=== PATIENT | male | born 1995 | race Two or more races ===

== ENCOUNTER 2021-01-08 03:41 | Emergency (ER) | payer SELFPAY ==
--- NOTE | 2021-01-08 03:56 | EDM.PDOC ---
<Kory Goldman - Last Filed: 01/08/21 06:40> ED HPI GENERAL MEDICAL PROBLEM - General Chief Complaint: Flank Pain Stated Complaint: ABDOMINAL PAIN Time Seen by Provider: 01/08/21 03:42 Source of Information: Reports: Patient History Limitations: Reports: No Limitations - History of Present Illness INITIAL COMMENTS - FREE TEXT/NARRATIVE: 25-year-old male with no past medical history presents with left flank pain. Pain started 24 hours ago, localized to the left flank and radiates to the left lower quadrant, described as throbbing, sharp, severe, waxes and wanes, rated 10/10. He admits to nausea and vomiting, hematuria, urgency. He denies fever, chills. ROS: A 10-point review of systems, other than pertinent positives and negatives as stated per HPI, is otherwise negative Past medical history: No additional pertinent history Past Surgical history: No additional pertinent history Social history: No additional pertinent history Family history: No additional pertinent history PHYSICAL EXAM General: AOx4, GCS = 15, moderate distress HEENT: dry mucous membrane Neck: supple, no meningismus, no Kernig or Brudzinski Cardiac: S1S2 RRR Respiratory: CTAB, no crackles or rales, no wheezing Abdomen: Soft, RLQ + LLQ ttp, no rebound or guarding, nondistended, no pulsatile mass. Back: nontender Musculoskeletal: NVI distally, no deformity Neuro: No focal deficits L abdomen Pain Score (Numeric/FACES): 10 - Related Data Allergies Allergy/AdvReac Type Severity Reaction Status Date / Time No Known Allergies Allergy Verified 01/08/21 03:53 Home Meds: Home Meds . [No Known Home Meds] 01/08/21 [History] ED ROS GENERAL - Review of Systems Review Of Systems: See Below (see dictation) ED EXAM, GENERAL - Physical Exam Exam: See Below (see dictation) Course - Re-Assessments/Exams Free Text/Narrative Re-Assessment/Exam: 01/08/21 06:10 Patient's left-sided abdominal pain is improved after IV pain medication. 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 01/08/21 06:[address] Danny Preez, will come assess patient for possible appendicitis. 01/08/21 06:59 Case signed out to Dr. Bishop for ultimate disposition. Departure - Departure Disposition: Home, Self-Care 01 Condition: Good Clinical Impression: Flank pain, Ureteral calculus, left - Discharge Information Instructions: Kidney Stones, [id number] Referrals: PCP,None [Primary Care Provider] - Forms: ED Department Discharge Additional Instructions: The following information is given to patients seen in the emergency department who are being discharged to home. This information is to outline your options for follow-up care. We provide all patients seen in our emergency department w ith a follow-up referral. The need for follow-up, as well as the timing and circumstances, are variable depending upon the specifics of your emergency department visit. If you don't have a primary care physician on staff, we will provide you with a referral. We always advise you to contact your personal physician following an emergency department visit to inform them of the circumstance of the visit and for follow-up with them and/or the need for any referrals to a consulting specialist. The emergency department will also refer you to a specialist when appropriate. This referral assures that you have the opportunity for follow-up care with a specialist. All of these measure are taken in an effort to provide you with optimal care, which includes your follow-up. Under all circumstances we always encourage you to contact your private physician who remains a resource for coordinating your care. When calling for follow-up care, please make the office aware that this follow-up is from your recent emergency room visit. If for any reason you are refused follow-up, please contact the [facility] Emergency Department at and asked to speak to the emergency department charge nurse. Please follow up with your primary care physician. If you do not have a primary care physician, see below: [facility] - Urology [address] [place] [id number] Your pain is likely due to your kidney stone. Again we did a CT scan and CT scan did show some dilatation of your appendix. After speaking to the surgeon and have them evaluate you we do not believe this is appendicitis at the moment. We do want you to keep an eye on this if you start having any intense pain in your right lower abdomen with nausea or vomiting or other concerning symptoms please return to the ED as soon as possible. You have any other questions feel free to give us a call back. <Sidney Bishop - Last Filed: 01/08/21 08:04> Course - Vital Signs Last Recorded V/S: Last Vital Signs Temp 98.8 F 01/08/21 03:53 Pulse 84 01/08/21 05:13 Resp 18 01/08/21 05:13 BP 137/70 01/08/21 05:13 Pulse Ox 97 01/08/21 05:13 - Orders/Labs/Meds Orders: Active Orders 24 hr Category Date Time Status CHLAMYDIA AND GONORRHEA BY TMA Stat Lab 01/08/21 05:40 Received CULTURE URINE [RM] Stat Lab 01/08/21 03:52 Received Sodium Chloride 0.9% [Saline Flush] Med 01/08/21 04:13 Active 10 ml FLUSH ASDIRECTED PRN Sodium Chloride 0.9% [Saline Flush] Med 01/08/21 04:13 Active 2.5 ml FLUSH ASDIRECTED PRN Saline Lock Insert [OM.PC] Stat Oth 01/08/21 04:13 Ordered Medication Orders Sodium Chloride (Sodium Chloride 0.9% 10 Ml Syringe) 10 ml FLUSH ASDIRECTED PRN PRN Reason: Keep Vein Open Sodium Chloride (Sodium Chloride 0.9% 2.5 Ml Syringe) 2.5 ml FLUSH ASDIRECTED PRN PRN Reason: Keep Vein Open Labs: Laboratory Tests 01/08/21 01/08/21 01/08/21 Range/Units 03:52 03:57 03:57 WBC 11.68 H (4.0-11.0) K/uL RBC 5.19 (4.50-5.90) M/uL Hgb 15.1 (13.0-17.0) g/dL Hct 45.2 (38.0-50.0) % MCV 87.1 (80.0-98.0) fL MCH 29.1 (27.0-32.0) pg MCHC 33.4 (31.0-37.0) g/dL RDW Std Deviation 42.0 (28.0-62.0) fl RDW Coeff of Diogo 13 (11.0-15.0) % Plt Count 348 (150-400) K/uL MPV 10.30 (7.40-12.00) fL Neut % (Auto) 59.4 (48.0-80.0) % Lymph % (Auto) 28.2 (16.0-40.0) % Limestone % (Auto) 9.6 (0.0-15.0) % Eos % (Auto) 2.5 (0.0-7.0) % Baso % (Auto) 0.3 (0.0-1.5) % Neut # (Auto) 6.9 H (1.4-5.7) K/uL Lymph # (Auto) 3.3 H (0.6-2.4) K/uL Limestone # (Auto) 1.1 H (0.0-0.8) K/uL Eos # (Auto) 0.3 (0.0-0.7) K/uL Baso # (Auto) 0.0 (0.0-0.1) K/uL Nucleated RBC % 0.0 /100WBC Nucleated RBCs # 0 K/uL Lactate 1.2 (0.20-2.00) mmol/L Sodium (136-148) mmol/L Potassium (3.5-5.1) mmol/L Chloride (98-107) mmol/L Carbon Dioxide (21.0-32.0) mmol/L BUN (7.0-18.0) mg/dL Creatinine (0.8-1.3) mg/dL Est Cr Clr Drug Dosing mL/min Estimated GFR (MDRD) ml/min Glucose (74-106) mg/dL Calcium (8.5-10.1) mg/dL Magnesium (1.8-2.4) mg/dL Total Bilirubin (0.2-1.0) mg/dL AST (15-37) IU/L ALT (14-63) IU/L Alkaline Phosphatase (46-116) U/L Total Protein (6.4-8.2) g/dL Albumin (3.4-5.0) g/dL Globulin (2.6-4.0) g/dL Albumin/Globulin Ratio (0.9-1.6) Lipase (73-393) U/L Urine Color YELLOW Urine Appearance SLT CLOUDY Urine pH 5.0 (5.0-8.0) Ur Specific Duncan >= 1.030 (1.001-1.035) Urine Protein TRACE H (NEGATIVE) mg/dL Urine Glucose (UA) NEGATIVE (NEGATIVE) mg/dL Urine Ketones NEGATIVE (NEGATIVE) mg/dL Urine Occult Blood LARGE H (NEGATIVE) Urine Nitrite NEGATIVE (NEGATIVE) Urine Bilirubin NEGATIVE (NEGATIVE) Urine Urobilinogen 0.2 (<2.0) EU/dL Ur Leukocyte Esterase TRACE H (NEGATIVE) Urine RBC 95-100 (0-2/HPF) Urine WBC 25-30 (0-5/HPF) Ur Epithelial Cells FEW (NONE-FEW) Urine Bacteria FEW (NEGATIVE) Urine Mucus MODERATE (NONE-MOD) SARS-CoV-2 RNA (KARLA) (NEGATIVE) 01/08/21 01/08/21 Range/Units 03:57 06:10 WBC (4.0-11.0) K/uL RBC (4.50-5.90) M/uL Hgb (13.0-17.0) g/dL Hct (38.0-50.0) % MCV (80.0-98.0) fL MCH (27.0-32.0) pg MCHC (31.0-37.0) g/dL RDW Std Deviation (28.0-62.0) fl RDW Coeff of Diogo (11.0-15.0) % Plt Count (150-400) K/uL MPV (7.40-12.00) fL Neut % (Auto) (48.0-80.0) % Lymph % (Auto) (16.0-40.0) % Limestone % (Auto) (0.0-15.0) % Eos % (Auto) (0.0-7.0) % Baso % (Auto) (0.0-1.5) % Neut # (Auto) (1.4-5.7) K/uL Lymph # (Auto) (0.6-2.4) K/uL Limestone # (Auto) (0.0-0.8) K/uL Eos # (Auto) (0.0-0.7) K/uL Baso # (Auto) (0.0-0.1) K/uL Nucleated RBC % /100WBC Nucleated RBCs # K/uL Lactate (0.20-2.00) mmol/L Sodium 141 (136-148) mmol/L Potassium 4.1 (3.5-5.1) mmol/L Chloride 105 (98-107) mmol/L Carbon Dioxide 25.8 (21.0-32.0) mmol/L BUN 14 (7.0-18.0) mg/dL Creatinine 1.4 H (0.8-1.3) mg/dL Est Cr Clr Drug Dosing 82.06 mL/min Estimated GFR (MDRD) > 60.0 ml/min Glucose 124 H (74-106) mg/dL Calcium 8.9 (8.5-10.1) mg/dL Magnesium 2.1 (1.8-2.4) mg/dL Total Bilirubin 0.4 (0.2-1.0) mg/dL AST 21 (15-37) IU/L ALT 53 (14-63) IU/L Alkaline Phosphatase 98 (46-116) U/L Total Protein 8.1 (6.4-8.2) g/dL Albumin 4.2 (3.4-5.0) g/dL Globulin 3.9 (2.6-4.0) g/dL Albumin/Globulin Ratio 1.1 (0.9-1.6) Lipase 89 (73-393) U/L Urine Color Urine Appearance Urine pH (5.0-8.0) Ur Specific Duncan (1.001-1.035) Urine Protein (NEGATIVE) mg/dL Urine Glucose (UA) (NEGATIVE) mg/dL Urine Ketones (NEGATIVE) mg/dL Urine Occult Blood (NEGATIVE) Urine Nitrite (NEGATIVE) Urine Bilirubin (NEGATIVE) Urine Urobilinogen (<2.0) EU/dL Ur Leukocyte Esterase (NEGATIVE) Urine RBC (0-2/HPF) Urine WBC (0-5/HPF) Ur Epithelial Cells (NONE-FEW) Urine Bacteria (NEGATIVE) Urine Mucus (NONE-MOD) SARS-CoV-2 RNA (KARLA) NEGATIVE (NEGATIVE) Meds: Medications Generic Name Dose Route Start Last Admin Trade Name Freq PRN Reason Stop Dose Admin Sodium Chloride 10 ml 01/08/21 04:13 Sodium Chloride 0.9% 10 Ml Syringe FLUSH ASDIRECTED PRN Keep Vein Open Sodium Chloride 2.5 ml 01/08/21 04:13 Sodium Chloride 0.9% 2.5 Ml Syringe FLUSH ASDIRECTED PRN Keep Vein Open Discontinued Medications Generic Name Dose Route Start Last Admin Trade Name Neto PRN Reason Stop Dose Admin Hydromorphone HCl 1 mg 01/08/21 04:13 01/08/21 04:20 Hydromorphone 1 Mg/Ml Syringe IVPUSH 01/08/21 04:14 1 mg ONETIME ONE Administration Lactated Ringer's 1,000 mls @ 999 mls/hr 01/08/21 04:13 01/08/21 04:19 Ringers, Lactated IV 01/08/21 05:13 999 mls/hr .BOLUS ONE Administration Ceftriaxone Sodium/Dextrose 1 50 mls @ 100 mls/hr 01/08/21 04:59 01/08/21 05:05 gm/ Premix IV 01/08/21 05:28 100 mls/hr ONETIME ONE Administration Piperacillin Sod/Tazobactam 100 mls @ 100 mls/hr 01/08/21 06:14 01/08/21 06:27 Sod 4.5 gm/ Sodium Chloride IV 01/08/21 07:13 100 mls/hr ONETIME ONE Administration Ondansetron HCl 4 mg 01/08/21 04:13 01/08/21 04:19 Ondansetron 4 Mg/2 Ml Sdv IVPUSH 01/08/21 04:14 4 mg ONETIME ONE Administration - Re-Assessments/Exams Free Text/Narrative Re-Assessment/Exam: 01/08/21 08:01 Patient was signed out to me from previous physician. Patient was found to have a kidney stone but also the CT scan showed a possible appendiceal dilatation. At the patient was evaluated by surgery patient has no right lower quadrant pain. On exam for me as well patient has no right lower quadrant pain. Patient feels like he has no nausea vomiting is able to tolerate p.o. looks fine. Patient is a small white count 11.6. At the speaking surgeon also discussed with the patient the bedside. Patient will like to be discharged home and have strict return precautions. We do not feel this is appendicitis today. Patient stone was 4 mm and will likely pass on his own. Patient will be sent home with antibiotics and a strainer. Departure - Departure Time of Disposition: 08:02 Condition: Good - Discharge Information *PRESCRIPTION DRUG MONITORING PROGRAM REVIEWED*: Not Applicable *COPY OF PRESCRIPTION DRUG MONITORING REPORT IN PATIENT [place]: Not Applicable Sepsis Event Note (ED) - Focused Exam Vital Signs: Vital Signs Temp Pulse Resp BP Pulse Ox 01/08/21 05:13 84 18 137/70 97 01/08/21 04:19 97 18 141/73 H 98 01/08/21 03:53 98.8 F 98 18 177/104 H 95
[2021-01-08] MEDS ORDERED: Sodium Chloride 0.9% 10 ML Syringe FLUSH PRN (04:13)
[2021-01-08] MEDS ORDERED: Sodium Chloride 0.9% 2.5 ML Syringe FLUSH PRN (04:13)
[2021-01-08] MEDS ORDERED: HYDROmorphone 1 MG/ML Syringe IVPUSH ONE (04:13)
[2021-01-08] MEDS ORDERED: Lactated Ringers 1,000 ML IV ONE (04:13)
[2021-01-08] MEDS ORDERED: Ondansetron 4 MG/2 ML SDV IVPUSH ONE (04:13)
[2021-01-08 04:28] LABS: BLOOD UREA NITROGEN,BUN 14 mg/dL (7.0-18.0); CARBON DIOXIDE,CO2 25.8 mmol/L (21.0-32.0); CHLORIDE,CL 105 mmol/L (98-107); GLUCOSE RANDOM 124 mg/dL (74-106); LIPASE 89 U/L (73-393); POTASSIUM,K 4.1 mmol/L (3.5-5.1); SODIUM,NA 141 mmol/L (136-148)
[2021-01-08] MEDS ORDERED: cefTRIAXone 1 GM in Premix Bag 1 BAG IV ONE (04:59)
--- NOTE | 2021-01-08 05:44 | CT ---
INDICATION: Left flank pain TECHNIQUE: Axial images were obtained from the diaphragm to the pubic symphysis. Reformats were obtained in the coronal and sagittal plane. IV Contrast: None Oral Contrast: None COMPARISON: None. FINDINGS: Lower chest: Unremarkable. Liver: Diffusely decreased density to the liver consistent with fatty infiltration. Gallbladder and bile ducts: Unremarkable. No stones or inflammation. No biliary dilatation. Spleen: Unremarkable. Normal in size without mass. Pancreas: Unremarkable. No mass or inflammation. Adrenal glands: Unremarkable. No nodules. Kidneys: Nephrolithiasis with mild left hydronephrosis and an obstructing proximal ureteral stone measuring 4 millimeters. Vasculature: Unremarkable. GI tract: No dilated loops of large or small intestine mild dilation of the appendiceal tip at 9 millimeters without periappendiceal inflammation. Pelvis: Unremarkable. Bones: Unremarkable for age. IMPRESSION: 1. Nephrolithiasis with mild left hydronephrosis and obstructing proximal left ureteral stone measuring 4 millimeters. 2. Hepatic steatosis. 3. Mild dilatation of the appendiceal tip at 9 millimeters. No adjacent inflammation is identified and this may be incidental although correlation for right lower quadrant pain suggested. Please note that all CT scans at this facility use dose modulation, iterative reconstruction, and/or weight-based dosing when appropriate to reduce radiation dose to as low as reasonably achievable. Dictated by Sunil Silva MD @ Jan 08 2021 5:38AM Signed by Dr. Sunil Silva @ Jan 08 2021 5:42AM
[2021-01-08] MEDS ORDERED: Piperacillin/Tazobactam 4.5 GM in Sodium Chloride 0.9% 100 ML IV ONE (06:14)
--- NOTE | 2021-01-08 10:03 | CONS ---
DATE OF CONSULTATION: 01/08/2021 DATE OF : 1995 PRIMARY CARE PHYSICIAN: None PCP HISTORY OF PRESENT ILLNESS: The patient is a pleasant 25-year-old gentleman who said this Shaun, approximately at 4 a.m., he had sudden onset of sharp left flank pain. He says it was like someone shoved a knife on to his left side. Severe pain. He said the pain did radiate a little bit up to his left upper abdomen. This pain persisted. He said he did not notice gross hematuria in his urine the next 3 times he urinated. We tried some cranberry juice and that seemed to work a little bit sometimes, what his grandmother said to use. He said the pain just persisted, so he came into the ER. The patient did have some nausea and vomiting. He has also had a little bit of loose stools. The patient said he has also had issue with urination in the last couple of weeks. He said for last 2 weeks he has had issues with urinary incontinence. He does not feel the urge to urinate. If he does not make it right away, he will wet himself. He also has white count up at night and he has urinated himself, which is new. The patient denies any right-sided pain at all. The patient did have a CT scan, which showed nephrolithiasis with left hydronephrosis and an obstructing proximal left ureteral stone measuring 4 mm, hepatic steatosis. The patient also had some mild dilation of the appendix tip at about 9 mm, but with no inflammation or signs of infection around the appendix. PAST MEDICAL HISTORY: The patient denies any. CURRENT HOME MEDICATIONS: The patient denies any. SOCIAL HISTORY: 1. The patient smokes a 4th pack of cigarettes per day. 2. Denies illicit drug use. 3. Occasionally drinks alcohol socially with his friends. Used about once a month when he was playing pool. FAMILY HISTORY: Grandmother had heart disease. REVIEW OF SYSTEMS: Complete 12+ review of systems was done, was negative except for what was in HPI. PULMONARY: The patient says at night sometimes he feels a little bit shortness of breath. Sometimes, wakes up short of breath, feels because of the smoking. : Again, the patient has had some urinary incontinence and urgency over the last 2 weeks. Also, apparently had blood in urine 3 times yesterday. Says that now it has cleared up. PHYSICAL EXAMINATION: GENERAL: The patient is lying comfortably in hospital ER bed. He is alert and oriented, in no acute distress. VITAL SIGNS: Temperature is 98.8, pulse is 84, blood pressure is 137/70, he is satting 97% on room air. HEENT: Head is normocephalic, atraumatic. LUNGS: Clear to auscultation bilaterally. No rhonchi or wheezing heard. HEART: Regular rhythm. No murmur appreciated. ABDOMEN: Soft and nondistended. The patient does have pain more in the mid left flank to palpation, to left vertebrocostal angle to palpation. No right- sided pain. No rebound, no guarding. EXTREMITIES: No edema. NEUROLOGICAL: Grossly, no motor or neurologic deficit noted. IMAGING: As per HPI. Did look at the report and reviewed images myself. LABORATORY DATA: White cell count is 11.68, hemoglobin is 15.1, platelet count is 42, lactic acid is 1.2. Sodium 141, potassium 4.1, chloride 105, bicarb is 25.8, BUN is 14, creatinine 1.4, glucose is 124, calcium is 8.9, total bilirubin 0.4, AST is 21, ALT is 53, alk phos is 98. Urinalysis: Some trace protein. Does have large occult blood, some trace leukocytes. COVID is negative. ASSESSMENT AND PLAN: This is a pleasant 25-year-old male, who had sudden onset of a knife-like sensation in his left flank accompanying with gross hematuria. He had a CT scan that shows obstructing stone in his left ureter, accompanying with some urinary incontinence. He was consulted for possible appendicitis because of potentially mildly dilated tip of appendix. Did go over with the patient that this is not likely appendicitis. There is no inflammation seen on CT scan, which is because of pain going on for over 24 hours some changing. Also, he has had no right-sided pain at all left. His pain is most likely due to his kidney stone. Did go over with the patient that some of this could be potentially early appendicitis. I did go over with the patient what appendix was. Went over laparoscopic appendectomy. Did discuss with the patient and we discussed we will hold on any surgery because of the low likelihood of actual appendicitis. He will come back if he has any right lower pain or his pain changes and has any fevers or chills. For his kidney stone, management is per ER and Urology. The patient may follow up in the clinic. ZION NGUYEN /[id number]
[2021-01-10 13:07] LABS: C.TRACHOMATIS BY TMA Positive (Negative); N.GONORRHOEAE BY TMA Negative (Negative)
== END 2021-01-08 08:14 | disposition home or self-care (01) ==
LOC: MW.ED 03:41
DX: N13.2 Hydronephrosis with renal and ureteral calculous obstruction (principal)
CPT/HCPCS: 36415; 74176; 80053; 81001; 83605; 83690; 83735; 85025; 87086; 87491; 87591; 87635; 96365; 96367; 96375; 99284; J0696; J1170; J2405; J2543; J7120; 99283; U0002

== ENCOUNTER 2021-03-07 06:27 | Day surgery (SDC) | payer BC ==
[~2021-03-07 06:27] MED LIST: Sodium Chloride 0.9% 10 ML SDV IV PRN; Sodium Chloride 0.9% 10 ML Syringe FLUSH PRN; Sodium Chloride 0.9% 2.5 ML Syringe FLUSH PRN; ceFAZolin 2 GM in Premix Bag 1 BAG IV ONE
[2021-03-07] MEDS: Lactated Ringers 1,000 ML IV SCH ×2 (07:00→10:37)
[2021-03-07] MEDS ORDERED: fentaNYL 250 MCG/5 ML SDV ONE (07:04)
[2021-03-07] MEDS ORDERED: Midazolam 1 MG/ML 2 ML SDV ONE (07:04)
[2021-03-07] MEDS ORDERED: Propofol 200 MG/20 ML SDV ONE (07:04)
[2021-03-07] MEDS ORDERED: Dexamethasone 4 MG/ML 5 ML MDV ONE (07:13)
[2021-03-07] MEDS ORDERED: Ondansetron 4 MG/2 ML SDV ONE (07:13)
[2021-03-07] MEDS ORDERED: Rocuronium Bromide 50 MG/5 ML Syringe ONE ×2 (07:13→08:25)
[2021-03-07] MEDS ORDERED: Succinylcholine/Sod PF 100 MG/5 ML SYRINGE IV ONE ×2 (07:13→07:15)
[2021-03-07] MEDS ORDERED: fentaNYL 100 MCG/2 ML SDV IVPUSH PRN (07:37)
[2021-03-07] MEDS ORDERED: Iopamidol 408 MG/ML 20 ML SDV ONE (07:39)
--- NOTE | 2021-03-07 07:48 | PCM.PREANE ---
Preanesthetic Assessment - Anesthesia/Transfusion/Family Hx Anesthesia History: Prior Anesthesia Without Reaction Family History of Anesthesia Reaction: No Transfusion History: No Prior Transfusion(s) - Review of Systems General: No Symptoms Pulmonary: No Symptoms, Other Cardiovascular: No Symptoms Gastrointestinal: No Symptoms Neurological: No Symptoms Other: Reports: None - Physical Assessment NPO Status Date: 03/06/21 NPO Status Time: 19:00 Vital Signs: Last Vital Signs Temp 97.7 F 03/07/21 06:22 Pulse 89 03/07/21 06:22 Resp 15 03/07/21 06:22 BP 166/100 H 03/07/21 06:22 Pulse Ox 98 03/07/21 06:22 Height: 5 ft 9 in Weight: 323 lb ASA Class: 2 Mental Status: Alert & Oriented x3 Dentition: Reports: Normal Dentition Thyro-Mental Finger Breadths: 6 Mouth Opening Finger Breadths: 4 ROM/Head Extension: Full Lungs: Clear to Auscultation, Normal Respiratory Effort Cardiovascular: Regular Rate, Regular Rhythm - Allergies Allergies/Adverse Reactions: Allergies Allergy/AdvReac Type Severity Reaction Status Date / Time No Known Allergies Allergy Verified 03/02/21 09:48 - Blood Blood Available: No - Anesthesia Plan Free Text/Narrative:: Patient smokes 3 cigarettes per day - Acknowledgements Anesthesia Type Planned: General Anesthesia Pt an Appropriate Candidate for the Planned Anesthesia: Yes Alternatives and Risks of Anesthesia Discussed w Pt/Guardian: Yes Pt/Guardian Understands and Agrees with Anesthesia Plan: Yes PreAnesthesia Questionnaire - Past Health History Medical/Surgical History: Denies Medical/Surgical History Endocrine/Metabolic History: Reports: Obesity/BMI 30+ - Past Surgical History Head Surgeries/Procedures: Reports: None - SUBSTANCE USE Tobacco Use Status *Q: Light Tobacco User Tobacco Use Within Last Twelve Months: Cigarettes - HOME MEDS Home Medications: Home Meds Hydrocodone/Acetaminophen [Hydrocodone-Acetamin 5-325 mg] 1 tab PO ASDIRECTED PRN 03/02/21 [History] - CURRENT (IN HOUSE) MEDS Current Meds: Current Medications Fentanyl (Fentanyl 100 Mcg/2 Ml Sdv) 50 mcg IVPUSH Q5M PRN PRN Reason: Pain (severe 7-10) Stop: 03/07/21 13:00 Lactated Ringer's (Ringers, Lactated) 1,000 mls @ 100 mls/hr IV ASDIRECTED GATO Last Admin: 03/07/21 07:00 Dose: 100 mls/hr Documented by: Sodium Chloride (Sodium Chloride 0.9% 10 Ml Syringe) 10 ml FLUSH ASDIRECTED PRN PRN Reason: Keep Vein Open Sodium Chloride (Sodium Chloride 0.9% 2.5 Ml Syringe) 2.5 ml FLUSH ASDIRECTED PRN PRN Reason: Keep Vein Open Sodium Chloride (Sodium Chloride 0.9% 10 Ml Sdv) 10 ml IV ASDIRECTED PRN PRN Reason: IV Use Discontinued Medications Dexamethasone (Dexamethasone 4 Mg/Ml 5 Ml Mdv) Confirm Administered Dose 20 mg .ROUTE .STK-MED ONE Stop: 03/07/21 07:14 Fentanyl (Fentanyl 250 Mcg/5 Ml Sdv) Confirm Administered Dose 250 mcg .ROUTE .STK-MED ONE Stop: 03/07/21 07:05 Cefazolin Sodium/Dextrose 2 gm (/ Premix) 50 mls @ 100 mls/hr IV ONCALL ONE Stop: 03/07/21 06:29 Cefazolin Sodium/Dextrose (Ancef 2 Gm/50 Ml) Confirm Administered Dose 50 mls @ as directed .ROUTE .STK-MED ONE Stop: 03/07/21 07:32 Iopamidol (Iopamidol 408 Mg/Ml 20 Ml Sdv) Confirm Administered Dose 20 ml .ROUTE .STK-MED ONE Stop: 03/07/21 07:40 Lidocaine HCl (Lidocaine 1% 5 Ml Sdv) Confirm Administered Dose 5 ml .ROUTE .STK-MED ONE Stop: 03/07/21 07:13 Midazolam HCl (Midazolam 1 Mg/Ml 2 Ml Sdv) Confirm Administered Dose 2 mg .ROUTE .STK-MED ONE Stop: 03/07/21 07:05 Ondansetron HCl (Ondansetron 4 Mg/2 Ml Sdv) Confirm Administered Dose 4 mg .ROUTE .STK-MED ONE Stop: 03/07/21 07:14 Propofol (Propofol 200 Mg/20 Ml Sdv) Confirm Administered Dose 200 mg .ROUTE .STK-MED ONE Stop: 03/07/21 07:05 Rocuronium Hana (Rocuronium Hana 50 Mg/5 Ml Syringe) Confirm Administered Dose 50 mg .ROUTE .STK-MED ONE Stop: 03/07/21 07:14
[2021-03-07] MEDS ORDERED: Sugammadex Sodium 200 MG/2 ML VIAL ONE (08:28)
[2021-03-07] MEDS ORDERED: Sodium Chloride 0.9% 20 ML ONE (08:28)
[2021-03-07] MEDS ORDERED: HYDROmorphone 2 MG/ML Syringe ONE (08:28)
[2021-03-07] MEDS ORDERED: Acetaminophen/HYDROcodone 325-5 MG Tab PO PRN (09:09)
--- NOTE | 2021-03-07 09:38 | PCM.POSTAN ---
POST ANESTHESIA ASSESSMENT - MENTAL STATUS Mental Status: Alert, Oriented - VITAL SIGNS Vital Signs: Last Vital Signs Temp 97.2 F 03/07/21 09:12 Pulse 96 03/07/21 09:28 Resp 18 03/07/21 09:28 BP 182/104 H 03/07/21 09:28 Pulse Ox 94 L 03/07/21 09:28 - RESPIRATORY Respiratory Status: Respiratory Rate WNL, Airway Patent, O2 Saturation Stable - CARDIOVASCULAR CV Status: Pulse Rate WNL, Blood Pressure Stable - GASTROINTESTINAL GI Status: No Symptoms - POST OP HYDRATION Hydration Status: Adequate & Stable
--- NOTE | 2021-03-07 09:39 | PCM48HPAN ---
Post Anesthesia Note - EVALUATION WITHIN 48HRS OF ANESTHETIC Vital Signs in Normal Range: Yes Patient Participated in Evaluation: Yes Respiratory Function Stable: Yes Airway Patent: Yes Cardiovascular Function Stable: Yes Hydration Status Stable: Yes Pain Control Satisfactory: Yes Nausea and Vomiting Control Satisfactory: Yes Mental Status Recovered: Yes Vital Signs: Last Vital Signs Temp 97.2 F 03/07/21 09:12 Pulse 96 03/07/21 09:28 Resp 18 03/07/21 09:28 BP 182/104 H 03/07/21 09:28 Pulse Ox 94 L 03/07/21 09:28
[2021-03-07] MEDS ORDERED: Belladonna Alkaloids/Opium 16.2-30 MG Supp RECTAL ONE (09:55)
--- NOTE | 2021-03-07 14:00 | OR ---
SURGEON: Son Mckay M.D. DATE OF PROCEDURE: 03/07/2021 PREOPERATIVE DIAGNOSIS: Left upper ureteral stone. POSTOPERATIVE DIAGNOSIS: Left upper ureteral stone. OPERATION: Left ureteroscopy with stone removal. DESCRIPTION: The patient was placed in dorsal lithotomy position, prepped and draped in sterile drapes. Cystourethroscopy was done, that was normal. A Glidewire was advanced in the left ureter and also a guidewire. Attempt at putting the flexible ureteroscope over one of the wires did not work, so I had to dilate the left lower ureter using the UroMax II balloon dilator to approximately 15- Bengali. Following that, it was easy to put the ureteroscope up all the way to the UPJ where the stone by now was sitting. A Zero Tip basket was used to grasp the stone and remove it without difficulty and without trauma to the ureter. With that done, the procedure was terminated. The guidewires were removed, and the patient was moved to recovery room in good condition. CURT / PATRICK /[id number]
--- NOTE | 2021-03-07 15:39 | CR ---
INDICATION: Left ureteroscopy. TECHNIQUE: One image showing a guidewire and a ureteral catheter. 24.2 seconds fluoroscopy. Please refer to the operative report. Dictated by Abdirahman Martinez MD @ 03/07/2021 2:37:41 PM (Electronically Signed)
== END 2021-03-07 11:16 | disposition home or self-care (01) ==
LOC: MW.SDS 06:27
PROVIDERS: ATTEND Urology
DX: N20.1 Calculus of ureter (principal); F17.210 Nicotine dependence, cigarettes, uncomplicated; E66.9 Obesity, unspecified; Z79.899 Other long term (current) drug therapy; Z68.42 Body mass index [BMI] 45.0-49.9, adult
CPT/HCPCS: 52352; 76000; 88300; A9270; C1769; J0330; J0690; J1100; J1170; J2250; J2405; J2704; J3010; J3490; J7120; Q9966; 00918

== ENCOUNTER 2021-06-10 01:47 | Emergency (ER) | payer BC ==
[2021-06-10] MEDS ORDERED: Ketorolac 30 MG/ML SDV IM ONE (02:07)
[2021-06-10] MEDS ORDERED: Ciprofloxacin 500 MG Tab PO ONE (02:12)
--- NOTE | 2021-06-10 02:14 | EDM.PDOC ---
ED HPI GENERAL MEDICAL PROBLEM - General Chief Complaint: ENT Problem Stated Complaint: EAR INFECTION Time Seen by Provider: 06/10/21 02:08 Source of Information: Reports: Patient History Limitations: Reports: No Limitations - History of Present Illness INITIAL COMMENTS - FREE TEXT/NARRATIVE: Patient is a 25-year-old male presents today for right ear pain. Patient states that he has some pain to the right ear went to walk-in clinic and was given eardrops. He states been taken off since Saturday did not make the symptoms better. States he still has pain and swelling there. Patient denies any change in hearing no fever chills nausea vomiting. right ear Pain Score (Numeric/FACES): 10 - Related Data Allergies Allergy/AdvReac Type Severity Reaction Status Date / Time No Known Allergies Allergy Verified 06/10/21 02:13 Home Meds: Home Meds Hydrocodone/Acetaminophen [Hydrocodone-Acetamin 5-325 mg] 1 tab PO ASDIRECTED PRN 03/02/21 [History] Ciprofloxacin HCl [Cipro] 500 mg PO BID 7 Days #14 tablet 06/10/21 [Rx] Past Medical History - Past Health History Medical/Surgical History: Denies Medical/Surgical History Endocrine/Metabolic History: Reports: Obesity/BMI 30+ - Past Surgical History Head Surgeries/Procedures: Reports: None Social & Family History - Family History Family Medical History: No Pertinent Family History - Caffeine Use Caffeine Use: Reports: Energy Drinks ED ROS ENT - Review of Systems Review Of Systems: See Below Constitutional: Reports: No Symptoms HEENT: Reports: Ear Pain Respiratory: Reports: No Symptoms Endocrine: Reports: No Symptoms GI/Abdominal: Reports: No Symptoms : Reports: No Symptoms Musculoskeletal: Reports: No Symptoms Skin: Reports: No Symptoms Neurological: Reports: No Symptoms Psychiatric: Reports: No Symptoms Hematologic/Lymphatic: Reports: No Symptoms Immunologic: Reports: No Symptoms ED EXAM, ENT - Physical Exam Exam: See Below Exam Limited By: No Limitations General Appearance: Alert, WD/WN, No Apparent Distress Eye Exam: Bilateral Eye: EOMI, PERRL Ears: Canal Discharge, Canal Swelling. No: Normal TMs Mouth/Throat: Normal Inspection Head: Atraumatic, Normocephalic Respiratory/Chest: No Respiratory Distress Cardiovascular: Normal Peripheral Pulses GI/Abdominal: Normal Bowel Sounds Neurological: Alert, Oriented Course - Vital Signs Last Recorded V/S: Last Vital Signs Temp 97.6 F 06/10/21 02:05 Pulse 92 06/10/21 02:05 Resp 18 06/10/21 02:05 BP 155/89 H 06/10/21 02:05 Pulse Ox 97 06/10/21 02:05 - Orders/Labs/Meds Orders: Active Orders 24 hr Category Date Time Status Ciprofloxacin/Dexamethasone [Ciprodex Otic Susp] Med 06/10/21 02:15 Active 1 ml EARRT BID Medication Orders Ciprofloxacin/Dexamethasone (Ciprofloxacin/Dexamethasone 0.3-0.1% Otic Susp 7.5 Ml Bottle) 1 ml EARRT BID GATO Meds: Medications Generic Name Dose Route Start Last Admin Trade Name Freq PRN Reason Stop Dose Admin Ciprofloxacin/Dexamethasone 1 ml 06/10/21 02:15 Ciprofloxacin/Dexamethasone 0.3-0.1% Otic Susp 7.5 Ml Bottle EARRT BID GATO Discontinued Medications Generic Name Dose Route Start Last Admin Trade Name Freq PRN Reason Stop Dose Admin Ciprofloxacin 500 mg 06/10/21 02:12 06/10/21 02:21 Ciprofloxacin 500 Mg Tab PO 06/10/21 02:13 500 mg ONETIME ONE Administration Ketorolac Tromethamine 30 mg 06/10/21 02:07 06/10/21 02:19 Ketorolac 30 Mg/Ml Sdv IM 06/10/21 02:08 30 mg ONETIME ONE Administration Departure - Departure Time of Disposition: 02:14 Disposition: Home, Self-Care 01 Condition: Good Clinical Impression: Otitis externa - Discharge Information *PRESCRIPTION DRUG MONITORING PROGRAM REVIEWED*: Not Applicable *COPY OF PRESCRIPTION DRUG MONITORING REPORT IN PATIENT [place]: Not Applicable Prescriptions: Ciprofloxacin HCl [Cipro] 500 mg PO BID 7 Days #14 tablet Instructions: Otitis Externa, [id number] Referrals: PCP,None [Primary Care Provider] - Forms: ED Department Discharge Additional Instructions: The following information is given to patients seen in the emergency department who are being discharged to home. This information is to outline your options for follow-up care. We provide all patients seen in our emergency department with a follow-up referral. The need for follow-up, as well as the timing and circumstances, are variable depending upon the specifics of your emergency department visit. If you don't have a primary care physician on staff, we will provide you with a referral. We always advise you to contact your personal physician following an emergency department visit to inform them of the circumstance of the visit and for follow-up with them and/or the need for any referrals to a consulting specialist. The emergency department will also refer you to a specialist when appropriate. This referral assures that you have the opportunity for follow-up care with a specialist. All of these measure are taken in an effort to provide you with optimal care, which includes your follow-up. Under all circumstances we always encourage you to contact your private physician who remains a resource for coordinating your care. When calling for follow-up care, please make the office aware that this follow-up is from your recent emergency room visit. If for any reason you are refused follow-up, please contact the Emergency Department at and asked to speak to the emergency department charge nurse. Please follow up with your primary care physician. If you do not have a primary care physician, see below: [facility] [address] [place] [id number] [facility] [address] [place] [id number] Emery Bonner MD [facility], [address] [place] [address] [address] [place] [address] P: [phone] F: [phone] You are seen today for increasing right ear pain. You look to have an otitis externa we have switch her antibiotics to a different eardrop and also place you on some oral antibiotics. Please continue to follow-up with primary care physician also above is a number for the ENT physician and [place] can call to follow-up with if your symptoms continue to worsen. New eardrops Ciprodex 4 drops in the right ear every 12 hours for the next 7 days Sepsis Event Note (ED) - Focused Exam Vital Signs: Vital Signs Temp Pulse Resp BP Pulse Ox 06/10/21 02:05 97.6 F 92 18 155/89 H 97 - My Orders Last 24 Hours: My Active Orders 06/10/21 02:15 Ciprofloxacin/Dexamethasone [Ciprodex Otic Susp] 1 ml EARRT BID - Assessment/Plan Last 24 Hours: My Active Orders 06/10/21 02:15 Ciprofloxacin/Dexamethasone [Ciprodex Otic Susp] 1 ml EARRT BID Plan: Patient is a 25-year-old male presents today for increasing right ear pain. Patient was given eardrops but is not improving the pain will switch eardrops to Ciprodex patient airway can also put patient on oral antibiotics as well.
[2021-06-10] MEDS ORDERED: Ciprofloxacin/Dexamethasone 0.3-0.1% Otic Susp 7.5 ML Bottle EARRT SCH (02:15)
== END 2021-06-10 02:43 | disposition home or self-care (01) ==
LOC: MW.ED 01:47
DX: H60.91 Unspecified otitis externa, right ear (principal); E66.9 Obesity, unspecified; Z68.42 Body mass index [BMI] 45.0-49.9, adult
CPT/HCPCS: 96372; 99282; A9270; J1885

== ENCOUNTER 2021-06-10 03:22 | Emergency (ER) | payer BC ==
[2021-06-10] MEDS ORDERED: diphenhydrAMINE 50 MG/ML SDV ONE (03:27)
[2021-06-10] MEDS ORDERED: EPINEPHrine 1 MG/ML SDV ONE (03:27)
[2021-06-10] MEDS ORDERED: methylPREDNISolone Sodium Succinate 125 MG/2 ML SDV ONE (03:27)
[2021-06-10] MEDS ORDERED: methylPREDNISolone Sodium Succinate 125 MG/2 ML SDV IVPUSH ONE (03:35)
[2021-06-10] MEDS ORDERED: diphenhydrAMINE 50 MG/ML SDV IVPUSH ONE (03:36)
--- NOTE | 2021-06-10 03:36 | EDM.PDOC ---
ED HPI GENERAL MEDICAL PROBLEM - General Chief Complaint: General Stated Complaint: ALLERGIC REACTION TO MEDS Time Seen by Provider: 06/10/21 03:32 Source of Information: Reports: Patient History Limitations: Reports: No Limitations - History of Present Illness INITIAL COMMENTS - FREE TEXT/NARRATIVE: Patient is a 25-year-old male presents today for allergic reaction. Patient was seen here earlier by myself for otitis externa and was given oral ciprofloxacin as well as no Ciprodex. Patient likely had allergic reaction to the ciprofloxacin. Patient developed some swelling of the face rashes and itchiness to his abdomen. Patient has no shortness of breath speaking in full sentences. We will cancel the ciprofloxacin to the pharmacy and prescribed medication for patient. - Related Data Allergies Allergy/AdvReac Type Severity Reaction Status Date / Time ciprofloxacin Allergy Swollen Verified 06/10/21 03:34 Tongue Home Meds: Home Meds Hydrocodone/Acetaminophen [Hydrocodone-Acetamin 5-325 mg] 1 tab PO ASDIRECTED PRN 03/02/21 [History] Amoxicillin/Clavulanate K [Augmentin 875-125 MG] 1 tab PO BID 7 Days #14 tablet 06/10/21 [Rx] predniSONE [Prednisone] 50 mg PO DAILY #5 tablet 06/10/21 [Rx] Past Medical History - Past Health History Medical/Surgical History: Denies Medical/Surgical History HEENT History: Reports: None Cardiovascular History: Reports: None Respiratory History: Reports: None Gastrointestinal History: Reports: None Genitourinary History: Reports: Renal Calculus Musculoskeletal History: Reports: None Neurological History: Reports: None Psychiatric History: Reports: None Endocrine/Metabolic History: Reports: Obesity/BMI 30+ Insulin Pump Model and Child Attendant: None Hematologic History: Reports: None Immunologic History: Reports: None Oncologic (Cancer) History: Reports: None Dermatologic History: Reports: None - Infectious Disease History Infectious Disease History: Reports: None - Past Surgical History Head Surgeries/Procedures: Reports: None Social & Family History - Family History Family Medical History: No Pertinent Family History - Caffeine Use Caffeine Use: Reports: None ED ROS GENERAL - Review of Systems Review Of Systems: See Below Constitutional: Reports: No Symptoms HEENT: Reports: No Symptoms Respiratory: Reports: No Symptoms Cardiovascular: Reports: No Symptoms Endocrine: Reports: No Symptoms GI/Abdominal: Reports: No Symptoms : Reports: No Symptoms Musculoskeletal: Reports: No Symptoms Skin: Reports: Urticaria Neurological: Reports: No Symptoms Psychiatric: Reports: No Symptoms Hematologic/Lymphatic: Reports: No Symptoms Immunologic: Reports: No Symptoms ED EXAM, GENERAL - Physical Exam Exam: See Below Exam Limited By: No Limitations General Appearance: Moderate Distress Eye Exam: Bilateral Eye: EOMI, PERRL Throat/Mouth: Normal Inspection, Normal Lips, Normal Oropharynx Respiratory/Chest: No Respiratory Distress, Lungs Clear, Normal Breath Sounds Cardiovascular: Normal Peripheral Pulses, Regular Rate, Rhythm GI/Abdominal: Normal Bowel Sounds, Soft, Non-Tender Extremities: Normal Inspection, Normal Range of Motion Neurological: Alert, Oriented Skin Exam: Petechiae (Abdomen) Course - Vital Signs Last Recorded V/S: Last Vital Signs Temp 98.4 F 06/10/21 03:24 Pulse 92 06/10/21 04:59 Resp 17 06/10/21 04:59 BP 148/76 H 06/10/21 04:59 Pulse Ox 98 06/10/21 04:59 - Orders/Labs/Meds Labs: Laboratory Tests 06/10/21 06/10/21 Range/Units 03:30 03:30 WBC 14.20 H (4.0-11.0) K/uL RBC 5.07 (4.50-5.90) M/uL Hgb 15.0 (13.0-17.0) g/dL Hct 43.2 (38.0-50.0) % MCV 85.2 (80.0-98.0) fL MCH 29.6 (27.0-32.0) pg MCHC 34.7 (31.0-37.0) g/dL RDW Std Deviation 40.2 (28.0-62.0) fl RDW Coeff of Diogo 13 (11.0-15.0) % Plt Count 357 (150-400) K/uL MPV 10.40 (7.40-12.00) fL Neut % (Auto) 56.9 (48.0-80.0) % Lymph % (Auto) 32.5 (16.0-40.0) % [place] % (Auto) 8.3 (0.0-15.0) % Eos % (Auto) 2.1 (0.0-7.0) % Baso % (Auto) 0.2 (0.0-1.5) % Neut # (Auto) 8.1 H (1.4-5.7) K/uL Lymph # (Auto) 4.6 H (0.6-2.4) K/uL [place] # (Auto) 1.2 H (0.0-0.8) K/uL Eos # (Auto) 0.3 (0.0-0.7) K/uL Baso # (Auto) 0.0 (0.0-0.1) K/uL Nucleated RBC % 0.0 /100WBC Nucleated RBCs # 0 K/uL Sodium 139 (136-148) mmol/L Potassium 3.9 (3.5-5.1) mmol/L Chloride 103 (98-107) mmol/L Carbon Dioxide 22.8 (21.0-32.0) mmol/L BUN 11 (7.0-18.0) mg/dL Creatinine 1.1 (0.8-1.3) mg/dL Est Cr Clr Drug Dosing 104.44 mL/min Estimated GFR (MDRD) > 60.0 ml/min Glucose 114 H (74-106) mg/dL Calcium 8.5 (8.5-10.1) mg/dL Total Bilirubin 0.4 (0.2-1.0) mg/dL AST 22 (15-37) IU/L ALT 62 (14-63) IU/L Alkaline Phosphatase 100 (46-116) U/L Total Protein 7.4 (6.4-8.2) g/dL Albumin 3.8 (3.4-5.0) g/dL Globulin 3.6 (2.6-4.0) g/dL Albumin/Globulin Ratio 1.1 (0.9-1.6) Meds: Medications Discontinued Medications Generic Name Dose Route Start Last Admin Trade Name Freq PRN Reason Stop Dose Admin Diphenhydramine HCl Confirm 06/10/21 03:27 06/10/21 03:36 Diphenhydramine 50 Mg/Ml Sdv Administered 06/10/21 03:28 Not Given Dose 50 mg .ROUTE .STK-MED ONE Diphenhydramine HCl 50 mg 06/10/21 03:36 06/10/21 03:38 Diphenhydramine 50 Mg/Ml Sdv IVPUSH 06/10/21 03:37 50 mg ONETIME ONE Administration Epinephrine HCl Confirm 06/10/21 03:27 06/10/21 03:36 Epinephrine 1 Mg/Ml Sdv Administered 06/10/21 03:28 Not Given Dose 1 mg .ROUTE .STK-MED ONE Methylprednisolone Sodium Succinate Confirm 06/10/21 03:27 06/10/21 03:36 Methylprednisolone Sodium Succinate 125 Mg/2 Ml Sdv Administered 06/10/21 03:28 Not Given Dose 125 mg .ROUTE .STK-MED ONE Methylprednisolone Sodium Succinate 125 mg 06/10/21 03:35 06/10/21 03:37 Methylprednisolone Sodium Succinate 125 Mg/2 Ml Sdv IVPUSH 06/10/21 03:36 125 mg ONETIME ONE Administration - Re-Assessments/Exams Free Text/Narrative Re-Assessment/Exam: 06/10/21 03:57 Patient symptoms has improved will observe patient for another hour and likely discharge home. Departure - Departure Time of Disposition: 05:14 Disposition: Home, Self-Care 01 Condition: Good Clinical Impression: Allergic reaction - Discharge Information *PRESCRIPTION DRUG MONITORING PROGRAM REVIEWED*: Not Applicable *COPY OF PRESCRIPTION DRUG MONITORING REPORT IN PATIENT [place]: Not Applicable Prescriptions: Amoxicillin/Clavulanate K [Augmentin 875-125 MG] 1 tab PO BID 7 Days #14 tablet predniSONE [Prednisone] 50 mg PO DAILY #5 tablet Instructions: Allergies, Adult, [id number] Referrals: PCP,None [Primary Care Provider] - Forms: ED Department Discharge Additional Instructions: The following information is given to patients seen in the emergency department who are being discharged to home. This information is to outline your options for follow-up care. We provide all patients seen in our emergency department with a follow-up referral. The need for follow-up, as well as the timing and circumstances, are variable depending upon the specifics of your emergency department visit. If you don't have a primary care physician on staff, we will provide you with a referral. We always advise you to contact your personal physician following an emergency department visit to inform them of the circumstance of the visit and for follow-up with them and/or the need for any referrals to a consulting specialist. The emergency department will also refer you to a specialist when appropriate. This referral assures that you have the opportunity for follow-up care with a specialist. All of these measure are taken in an effort to provide you with optimal care, which includes your follow-up. Under all circumstances we always encourage you to contact your private physician who remains a resource for coordinating your care. When calling for follow-up care, please make the office aware that this follow-up is from your recent emergency room visit. If for any reason you are refused follow-up, please contact the [facility] Emergency Department at and asked to speak to the emergency department charge nurse. Please follow up with your primary care physician. If you do not have a primary care physician, see below: [facility] [address] [place] [phone] [facility] [address] [place] [address] You are seen today after you had allergic reaction to ciprofloxacin. We recommend you do not take ciprofloxacin or any other fluoroquinolones in the meantime. We will change her antibiotics to amoxicillin for your ear. We also sent you home with a 5-day course of steroids she is also take for the next 5 d ays. If you develop any other symptoms please return to the ED. We also recommend to continue use the eardrops that you currently have. Sepsis Event Note (ED) - Focused Exam Vital Signs: Vital Signs Temp Pulse Resp BP Pulse Ox 06/10/21 04:59 92 17 148/76 H 98 06/10/21 03:24 98.4 F 101 H 18 152/80 H 97 - Assessment/Plan Plan: Patient is a 25-year-old male presents today for allergic reaction to ciprofloxacin received earlier for his otitis externa. Will change medications observe patient likely discharge home.
[2021-06-10 04:05] LABS: BLOOD UREA NITROGEN,BUN 11 mg/dL (7.0-18.0); CARBON DIOXIDE,CO2 22.8 mmol/L (21.0-32.0); CHLORIDE,CL 103 mmol/L (98-107); GLUCOSE RANDOM 114 mg/dL (74-106); POTASSIUM,K 3.9 mmol/L (3.5-5.1); SODIUM,NA 139 mmol/L (136-148)
== END 2021-06-10 05:24 | disposition home or self-care (01) ==
LOC: MW.ED 03:22
DX: R21 Rash and other nonspecific skin eruption (principal); T36.8X5A Adverse effect of other systemic antibiotics, initial encounter; E66.9 Obesity, unspecified; Z68.42 Body mass index [BMI] 45.0-49.9, adult; Z88.1 Allergy status to other antibiotic agents
CPT/HCPCS: 36415; 80053; 85025; 96374; 96375; 99283; J1200; J2930

== ENCOUNTER 2022-12-20 07:59 | Emergency (ER) | payer BC ==
[2022-12-20 08:49] LABS: CORONAVIRUS COVID-19 NAA NEGATIVE (NEGATIVE); INFLUENZA A NAA NEGATIVE (NEGATIVE); INFLUENZA B NAA NEGATIVE (NEGATIVE)
[2022-12-20 09:23] LABS: CARBON DIOXIDE,CO2 25.7 mmol/L (21.0-32.0); POTASSIUM,K 4.3 mmol/L (3.5-5.1)
== END 2022-12-20 10:26 | disposition home or self-care (01) ==
LOC: MW.ED 07:59
DX: R07.89 Other chest pain (principal); E66.9 Obesity, unspecified; Z68.42 Body mass index [BMI] 45.0-49.9, adult; Z88.1 Allergy status to other antibiotic agents; Z20.822 Contact with and (suspected) exposure to COVID-19
CPT/HCPCS: 0240U; 36415; 71045; 80053; 83690; 84484; 85025; 93005; 99285; 93010; 99284

== ENCOUNTER 2023-05-10 14:03 | Emergency (ER) | payer BC ==
[2023-05-10] MEDS ORDERED: Sodium Chloride 0.9% 2.5 ML Syringe FLUSH PRN (14:42)
[2023-05-10] MEDS ORDERED: Sodium Chloride 0.9% 10 ML Syringe FLUSH PRN (14:42)
[2023-05-10] MEDS ORDERED: Sodium Chloride 0.9% 1,000 ML IV STA (14:45)
[2023-05-10] MEDS ORDERED: Morphine 4 MG/ML Syringe IVPUSH STA ×2 (14:57→17:16)
[2023-05-10] MEDS ORDERED: Ondansetron 4 MG/2 ML SDV IVPUSH STA (14:58)
[2023-05-10] MEDS ORDERED: cefTRIAXone 2 GM in Sodium Chloride 0.9% 50 ML IV STA (15:04)
[2023-05-10] MEDS ORDERED: metroNIDAZOLE 250 MG Tab PO STA (15:05)
[2023-05-10 15:10] LABS: BASOPHILS PERCENT AUTO 0.2 % (0.0-1.5); EOSINOPHILS ABSOLUTE AUTO 0.3 K/uL (0.0-0.7); HEMATOCRIT 41.7 % (38.0-50.0); HEMOGLOBIN 13.7 g/dL (13.0-17.0); LYMPHOCYTES ABSOLUTE AUTO 2.7 K/uL (0.6-2.4); LYMPHOCYTES PERCENT AUTO 22.2 % (16.0-40.0); MEAN CORPUSCULAR HEMOGLOBIN 27.3 pg (27.0-32.0); MEAN CORPUSCULAR HGB CONC 32.9 g/dL (31.0-37.0); MEAN CORPUSCULAR VOLUME 83.2 fL (80.0-98.0); MONOCYTES PERCENT AUTO 8.2 % (0.0-15.0); NEUTROPHILS ABSOLUTE AUTO 8.3 K/uL (1.4-5.7); NEUTROPHILS PERCENT AUTO 67.4 % (48.0-80.0); NRBC ABSOLUTE 0 K/uL; PLATELET COUNT,PLT 327 K/uL (150-400); RED BLOOD CELL COUNT 5.01 M/uL (4.50-5.90); WHITE BLOOD CELL COUNT,WBC 12.34 K/uL (4.0-11.0)
[2023-05-10 15:36] LABS: A/G RATIO 0.9 (0.9-1.6); ALBUMIN 3.7 g/dL (3.4-5.0); BILIRUBIN TOTAL 0.3 mg/dL (0.2-1.0); CALCIUM 9.1 mg/dL (8.5-10.1); CARBON DIOXIDE,CO2 26.1 mmol/L (21.0-32.0); EST CRCL DRUG DOSING (CG) 116.6 mL/min; POTASSIUM,K 3.7 mmol/L (3.5-5.1); PROTEIN TOTAL,TP 7.6 g/dL (6.4-8.2)
[2023-05-10] MEDS ORDERED: Iopamidol 755 Mg/ML 100 ML Bottle IVPUSH ONE (16:21)
== END 2023-05-10 18:13 | disposition home or self-care (01) ==
LOC: MW.ED 14:03
DX: L08.9 Local infection of the skin and subcutaneous tissue, unspecified (principal); Z88.1 Allergy status to other antibiotic agents
CPT/HCPCS: 36415; 74177; 80053; 83605; 85025; 87040; 96365; 96375; 96376; 99284; A9270; J0696; J2270; J2405; J3490; J7030; Q9967

== ENCOUNTER 2023-11-07 06:54 | Emergency (ER) | payer BC | END 2023-11-07 07:20 | disposition left against medical advice (07) | LOC: MW.ED 06:54 | DX: Z53.21 Procedure and treatment not carried out due to patient leaving prior to being seen by health care provider (principal) ==

== ENCOUNTER 2025-03-02 11:18 | Emergency (ER) | payer BC, OTHER ==
[2025-03-02] MEDS: Lidocaine/Epineph/Tetracaine 3 ML Syringe TOP ONE (12:07)
[2025-03-02] MEDS: Diphtheria,Pertussis(Acell),Tetanus Vaccine 0.5 ML Syringe IM ONE (12:08)
[2025-03-02] MEDS: Bacitracin Oint 1 GM U/D Packet TOP ONE (13:41)
== END 2025-03-02 13:46 | disposition home or self-care (01) ==
LOC: MW.ED 11:18
DX: S61.216A Laceration without foreign body of right little finger without damage to nail, initial encounter (principal); Z23 Encounter for immunization; X58.XXXA Exposure to other specified factors, initial encounter
CPT/HCPCS: 12002; 73130; 90471; 90715; 99283; A9270